=== PATIENT | female | born 1995 | race Two or more races ===

== ENCOUNTER 2025-08-26 10:10 | Emergency (ER) | payer MEDICAID ==
[~2025-08-26] VITALS: Ht 157.5 cm; Wt 65.0 kg
[2025-08-26 10:18] VITALS: O2SAT 100
[2025-08-26 10:20] VITALS: BP 108/65; PULSE 98; RESP 18; O2SAT 98
[2025-08-26] MEDS ORDERED: SODIUM CHLORIDE 0.9% 1,000 ML IV ONE (11:15)
[2025-08-26] MEDS ORDERED: ONDANSETRON HCL 4MG/2ML INJ IV ONE ×2 (11:15→13:30)
[2025-08-26 12:40] LABS: BASOPHILS % 0.3 % (0.0-2.0); EOSINOPHILS % 0.2 % (0.0-5.0); HEMATOCRIT. 39.7 % (36.0-48.0); HEMOGLOBIN. 13.2 g/dL (12.0-16.0); LYMPHOCYTES % 13.6 % (20.0-50.0); MEAN PLATELET VOLUME 8.5 fl (7.4-10.4); MONOCYTES % 10.7 % (2.0-8.0); NEUTROPHILS % 75.2 % (40.0-76.0); PLATELET 285 x1000/uL (130-400); RED BLOOD CELL COUNT 4.31 mill/uL (4.2-5.4); RED CELL DISTRIBUTION WIDTH 13.3 % (11.6-14.6)
[2025-08-26 12:50] LABS: HCG SCREEN NEGATIVE
[2025-08-26 12:53] LABS: CREATININE 0.7 mg/dL (0.6-1.0); UREA NITROGEN BLOOD 5 mg/dL (9-23)
[2025-08-26] MEDS: ONDANSETRON HCL 4MG/2ML INJ IV SCH (13:30)
[2025-08-26] MEDS: KETOROLAC 15MG/ML VIAL IV ONE (13:38)
[2025-08-26 13:50] VITALS: TEMP 37.9
[2025-08-26] MEDS ORDERED: ONDA-239 PO (13:55)
[2025-08-26] MEDS ORDERED: IBUPROFEN 600MG TABLET PO ONE (14:00)
== END 2025-08-26 14:25 | disposition home or self-care (01) ==
LOC: ER 10:10 → CANBEDREQ 14:06 → ER 14:25
DX: B43.9 Chromomycosis, unspecified (principal); Z79.899 Other long term (current) drug therapy
CPT/HCPCS: 99283; 80048; 82550; 84703; 85025; 36415; J1885; J2405; J7030